=== PATIENT | female | born 1940 | race African-American/Black ===

== ENCOUNTER 2022-07-28 23:00 | Inpatient (IN) | payer MEDICARE, MEDICAID ==
[~2022-07-28] VITALS: Ht 162.6 cm; Wt 70.3 kg
[~2022-07-28 23:00] MED LIST: AMLO10TA80 PO; ATOR10TA69 PO; FURO40TA5 PO; OLAN2.5T29 PO; RISP05 PO; SULF-292 PO; TRAM50TA3 PO
[2022-07-29 02:43] LABS: EOSINOPHILS % 4.7 % (0.0-5.0); HEMATOCRIT. 34.8 % (36.0-48.0); HEMOGLOBIN. 11.1 g/dL (12.0-16.0); LYMPHOCYTES % 24.9 % (20.0-50.0); MEAN CORPUSCULAR HEMOGLOBIN 31.7 pg (28.0-32.0); MEAN CORPUSCULAR VOLUME 98.9 fL (81.0-99.0); MEAN PLATELET VOLUME 8.6 fl (7.4-10.4); MONOCYTES % 12.3 % (2.0-8.0); NEUTROPHILS % 57.1 % (40.0-76.0); PLATELET 165 x1000/uL (130-400); RED BLOOD CELL COUNT 3.52 mill/uL (4.2-5.4); RED CELL DISTRIBUTION WIDTH 14.7 % (11.6-14.6)
[2022-07-29 02:52] LABS: CHLORIDE 112 mEq/L (98-107)
[2022-07-29] MEDS ORDERED: ONDANSETRON HCL 4MG/2ML INJ IV PRN (10:45)
[2022-07-29] MEDS ORDERED: ACETAMINOPHEN 325MG TABLET PO PRN (10:45)
[2022-07-29 13:06] LABS: CLARITY URINE CLOUDY (CLEAR); COLOR URINE YELLOW (YELLOW); KETONES URINE TRACE (NEGATIVE); LEUKOCYTE ESTERASE URINE TRACE (NEGATIVE); NITRITE URINE NEGATIVE (NEGATIVE); OCCULT BLOOD URINE NEGATIVE (NEGATIVE); PROTEIN URINE TRACE (NEGATIVE); SPECIFIC GRAVITY URINE 1.024 (1.005-1.030); UROBILINOGEN URINE 0.2 E.U./dL (0.2-1.0)
[2022-07-29 20:00] VITALS: BP 101/57
[2022-07-29] MEDS ORDERED: ZOLP10TA2 PO (21:01)
[2022-07-29] MEDS ORDERED: FERR325T23 GT (21:03)
[2022-07-29] MEDS ORDERED: ASCO500C18 PO (21:03)
[2022-07-29 21:44] VITALS: BP 101/57
[2022-07-29] MEDS ORDERED: TRAMADOL 50MG TABLET PO PRN (21:45)
[2022-07-29] MEDS ORDERED: NALOXONE HCL 0.4MG/ML VIAL IV PRN (22:00)
[2022-07-29] MEDS: ZOLPIDEM TARTRATE 5MG TABLET PO SCH (22:17)
[2022-07-29] MEDS: OLANZAPINE 2.5MG TABLET PO SCH (22:17)
[2022-07-30] VITALS: BP 115/56
[2022-07-30 04:00] VITALS: BP 99/53
[2022-07-30 08:00] VITALS: BP 106/62
[2022-07-30] MEDS: RISPERIDONE 0.5MG TABLET PO SCH (09:00)
[2022-07-30] MEDS: FUROSEMIDE 40MG TABLET PO SCH (09:00)
[2022-07-30] MEDS: AMLODIPINE 10MG TABLET PO SCH (09:00)
[2022-07-30] MEDS: FERROUS SULFATE 325MG TABLET PO SCH (10:00)
[2022-07-30] MEDS: ATORVASTATIN CALCIUM 10MG TABLET PO SCH (10:01)
[2022-07-30 12:00] VITALS: BP 105/61
[2022-07-30] MEDS: MEROPENEM 1,000 MG in SODIUM CHLORIDE 0.9% 100 ML IV SCH (15:48)
[2022-07-30] MEDS ORDERED: SULF-292 PO (16:47)
[2022-07-30 20:00] VITALS: BP 120/47
[2022-07-30] MEDS: ZOLPIDEM TARTRATE 5MG TABLET PO SCH (21:27)
[2022-07-30] MEDS: OLANZAPINE 2.5MG TABLET PO SCH (21:27)
[2022-07-31] VITALS: BP 133/97
[2022-07-31] MEDS: MEROPENEM 1,000 MG in SODIUM CHLORIDE 0.9% 100 ML IV SCH ×2 (02:36→02:48)
[2022-07-31 04:00] VITALS: BP 96/57
[2022-07-31 08:00] VITALS: BP 107/69
[2022-07-31] MEDS: RISPERIDONE 0.5MG TABLET PO SCH (08:31)
[2022-07-31] MEDS: FUROSEMIDE 40MG TABLET PO SCH (08:32)
[2022-07-31] MEDS: ATORVASTATIN CALCIUM 10MG TABLET PO SCH (08:34)
[2022-07-31] MEDS: FERROUS SULFATE 325MG TABLET PO SCH (08:34)
[2022-07-31] MEDS: AMLODIPINE 10MG TABLET PO SCH (08:34)
[2022-07-31 10:46] VITALS: BP 107/69
[2022-07-31 12:00] VITALS: BP 109/58
== END 2022-07-31 12:20 | disposition home health service (06) | DRG 203 ==
LOC: ER 23:00 → MICUSO 07-29 02:08 → EDBEDREQ 07-29 02:18 → EDBEDREQTM 07-29 02:18 → 7WST 07-29 18:30
PROVIDERS: ADMIT Internal Medicine; ATTEND Internal Medicine
DX: M94.0 Chondrocostal junction syndrome [Tietze] (principal); E44.1 Mild protein-calorie malnutrition; F03.90 Unspecified dementia, unspecified severity, without behavioral disturbance, psychotic disturbance, mood disturbance, and anxiety; D68.69 Other thrombophilia; I48.91 Unspecified atrial fibrillation; D72.819 Decreased white blood cell count, unspecified; J44.9 Chronic obstructive pulmonary disease, unspecified; I10 Essential (primary) hypertension; Z88.0 Allergy status to penicillin; Z88.8 Allergy status to other drugs, medicaments and biological substances; Z79.899 Other long term (current) drug therapy; Z68.26 Body mass index [BMI] 26.0-26.9, adult
CPT/HCPCS: 36415; 71045; 80053; 81003; 84484; 85025; 93005; 97162; 97530; 99285; A6261; J2185; J7050